=== PATIENT | female | born 1995 | race Caucasian/White ===

== ENCOUNTER 2023-03-05 12:26 | Emergency (ER) | payer OTHER ==
[2023-03-05 12:31] VITALS: BP 121/86; PULSE 83; RESP 16; TEMP 97.3; BMI 22.6
[2023-03-05 14:00] LABS: BASO % 1.1 % (0-2.0); EOS % 0.7 % (0-4.5); HEMATOCRIT 40.8 % (32.4-45.2); HEMOGLOBIN 13.5 GM/dL (10.7-15.3); LYMPH % 37.3 % (8-40); MCH 30.5 pg (25.7-33.7); MCHC 33.2 g/dl (32.0-36.0); MEAN CELL VOLUME 91.8 fl (80-96); MEAN PLT VOLUME 8.8 fl (7.5-11.1); MONO % 10.2 % (3.8-10.2); NEUT % 50.7 % (42.8-82.8); PLATELET COUNT 260 10^3/uL (134-434); RBC 4.45 M/mm3 (3.60-5.2); RDW 12.6 % (11.6-15.6); WHITE BLOOD COUNT 5.2 K/mm3 (4.0-10.0)
[2023-03-05 14:26] LABS: POTASSIUM 4.4 mmol/L (3.5-5.1)
[2023-03-05 14:27] LABS: CALCIUM 9.2 mg/dL (8.5-10.1)
[2023-03-05 14:31] LABS: CREATININE 0.8 mg/dL (0.55-1.3)
[2023-03-05 14:32] LABS: BLOOD UREA NITROGEN 12.3 mg/dL (7-18)
[2023-03-05 15:11] LABS: EPI CELLS >36 /uL (0-25.1); HYALINE CASTS 14 /uL (0-3.1); PH,URINE 7.5 (5.0-8.0); URINE APPEARANCE TURBID; URINE BACTERIA 5814 /uL (0-1359); URINE BILIRUBIN NEGATIVE (NEGATIVE); URINE COLOR YELLOW; URINE GLUCOSE (UA) NEGATIVE (NEGATIVE); URINE KETONE NEGATIVE (NEGATIVE); URINE LEUK ESTERASE 2+ (NEGATIVE); URINE NITRITE NEGATIVE (NEGATIVE); URINE PROTEIN TRACE (NEGATIVE); URINE RBC 27 /uL (0-23.9); URINE UROBILINOGEN 0.2 mg/dL (0.2-1.0); URINE WBC 656 /uL (0-25.8)
== END 2023-03-05 17:26 | disposition home or self-care (01) ==
LOC: JER 12:26
DX: R10.2 Pelvic and perineal pain (principal); K59.00 Constipation, unspecified; N30.00 Acute cystitis without hematuria; R10.9 Unspecified abdominal pain
CPT/HCPCS: 36415; 76830-TC; 80048; 81003; 84703; 85025; 87077; 87086; 87186; 99284-25